=== PATIENT | female | born 1975 | race Hispanic/Latino ===

== ENCOUNTER 2019-07-31 12:33 | Emergency (ER) | payer OTHER ==
[2019-07-31] MEDS ORDERED: CEFTRIAXONE SODIUM 1 GM ONE (13:40)
[2019-07-31] MEDS ORDERED: LIDOCAINE HCL-MPF 1% 2ML VIAL ONE (13:40)
== END 2019-07-31 14:01 | disposition home or self-care (01) ==
LOC: EDH 12:33
DX: K04.7 Periapical abscess without sinus (principal); I10 Essential (primary) hypertension; F41.9 Anxiety disorder, unspecified; Z88.6 Allergy status to analgesic agent
CPT/HCPCS: 96372; 99283; J0696; J3490